=== PATIENT | male | born 1970 | race Hispanic/Latino ===

== ENCOUNTER 2021-07-31 17:07 | Outpatient (CLI) | payer OTHER | END 2021-07-31 17:08 | disposition home or self-care (01) | LOC: BURRAD 17:07 | PROVIDERS: ATTEND Nurse Practitioner Family | DX: W01.0XXA Fall on same level from slipping, tripping and stumbling without subsequent striking against object, initial encounter (principal); M43.17 Spondylolisthesis, lumbosacral region; M47.816 Spondylosis without myelopathy or radiculopathy, lumbar region | CPT/HCPCS: 72120 ==